=== PATIENT | female | born 1990 | race American Indian/Alaskan Native ===

== ENCOUNTER 2021-12-05 13:40 | Emergency (ER) | payer OTHER ==
[2021-12-05 14:25] VITALS: BP 112/79
[2021-12-05 16:19] LABS: Basophils % (Auto) 0.2 % (0.0-1.8); Eosinophils # (Auto) 0.1 K/mm3 (0.0-0.4); Eosinophils % (Auto) 1.5 % (0.0-4.3); Hematocrit 34.8 % (30.3-42.9); Hemoglobin 11.2 gm/dl (10.1-14.3); Lymphocytes # (Auto) 2.1 K/mm3 (1.2-5.4); Lymphocytes % (Auto) 30.9 % (13.4-35.0); Mean Corpuscular HGB Conc 32 % (30-34); Mean Corpuscular Volume 81 fl (79-97); Monocytes # (Auto) 0.7 K/mm3 (0.0-0.8); Monocytes % (Auto) 10.8 % (0.0-7.3); Platelet Count 318 K/mm3 (140-440); Red Blood Count 4.33 M/mm3 (3.65-5.03); Red Cell Distribution Width 15.9 % (13.2-15.2)
--- NOTE | 2021-12-05 16:24 | Vascular Lab Report ---
VL venous duplex LE RT INDICATION / CLINICAL INFORMATION: right leg pain and calf pain for a week. TECHNIQUE: Multiple grayscale sonographic images of left upper extremity were obtained utilizing a high-frequenc y linear array transducer with color Doppler, compression and other maneuvers when feasible. COMPARISON: None available. FINDINGS: No venous thrombosis is identified within the visualized extremity vasculature. ADDITIONAL FINDINGS: None. IMPRESSION: 1. No sonographic evidence for DVT in the visualized right lower extremity vasculature. Signer Name: Anup Hairston MD Signed: 12/05/2021 4:19 PM Workstation Name: [id number]
[2021-12-05 16:25] LABS: INR 0.96 (0.87-1.13)
[2021-12-05 16:40] LABS: BUN/Creatinine Ratio 21; Blood Urea Nitrogen 15 mg/dL (7-17); Calcium 9.2 mg/dL (8.4-10.2); Hemolysis Index 0
[2021-12-05] MEDS ORDERED: ACETAMINOPHEN 500 MG TAB PO ONE (19:34)
[2021-12-05] MEDS ORDERED: ONDANSETRON 4 MG ODT TAB PO ONE (19:34)
--- NOTE | 2021-12-05 19:56 | Emergency Department Report ---
ED Extremity Problem HPI - General Chief complaint: Extremity Injury, Lower Stated complaint: BLOOD CLOT IN RIGHT LEG Source: patient Mode of arrival: Ambulatory Limitations: No Limitations - History of Present Illness Initial comments: 31-year-old female presents to the ED complaining of low back pain radiating to her right leg x1 week. She has a history of DVT. Patient came to the ED to have an ultrasound done to rule out DVT. She states that she is currently breast-feeding a 4-month old and did not take any pain medication. She denies any dysuria, trauma, or fever. She has no no obvious edema noted to the right lower extremity,, no erythema noted. Patient is ambulatory without any difficulty. Denies any numbness tingling at present time. Patient is alert and oriented x3. No acute distress noted .No ill appearance noted. MD Complaint: extremity pain Onset/Timin -: week(s) Location: right, lower extremity History of Same: Yes Radiation: none Severity scale (0 -10): 5 Quality: aching Consistency: intermittent Improves with: nothing Worsens with: nothing Associated Symptoms: denies other symptoms - Related Data Previous Rx's Medication Instructions Recorded Last Taken Type Cyclobenzaprine [Flexeril] 10 mg PO TID PRN 15 Days #30 tab 12/05/21 Unknown Rx Ketorolac [Toradol] 10 mg PO Q6H PRN 15 Days #30 tab 12/05/21 Unknown Rx predniSONE [Deltasone] 50 mg PO QDAY 5 Days #5 tab 12/05/21 Unknown Rx Allergies Allergy/AdvReac Type Severity Reaction Status Date / Time No Known Allergies Allergy Unverified 12/05/21 14:21 ED Review of Systems ROS: Stated complaint: BLOOD CLOT IN RIGHT LEG Other details as noted in HPI Constitutional: denies: chills, fever Eyes: denies: eye pain, eye discharge, vision change ENT: denies: ear pain, throat pain Respiratory: denies: cough, shortness of breath, wheezing Cardiovascular: denies: chest pain, palpitations Endocrine: no symptoms reported Gastrointestinal: denies: abdominal pain, nausea, diarrhea Genitourinary: denies: urgency, dysuria, discharge Musculoskeletal: denies: back pain, joint swelling, arthralgia Skin: denies: rash, lesions Neurological: denies: headache, weakness, paresthesias Psychiatric: denies: anxiety, depression Hematological/Lymphatic: denies: easy bleeding, easy bruising ED Past Medical Hx - Past Medical History Previous Medical History?: Yes Hx Deep Vein Thrombosis: Yes (Right leg) Additional medical history: Vaginal delivery x 4 - Surgical History Past Surgical History?: Yes Additional Surgical History: Tubaligation - Medications Home Medications: Home Medications Medication Instructions Recorded Confirmed Last Taken Type Cyclobenzaprine [Flexeril] 10 mg PO TID PRN 15 Days #30 tab 12/05/21 Unknown Rx Ketorolac [Toradol] 10 mg PO Q6H PRN 15 Days #30 tab 12/05/21 Unknown Rx predniSONE [Deltasone] 50 mg PO QDAY 5 Days #5 tab 12/05/21 Unknown Rx ED Physical Exam - General Limitations: No Limitations General appearance: alert, in no apparent distress - Head Head exam: Present: atraumatic, normocephalic - Eye Eye exam: Present: normal appearance - ENT ENT exam: Present: mucous membranes moist - Neck Neck exam: Present: normal inspection - Respiratory Respiratory exam: Present: normal lung sounds bilaterally. Absent: respiratory distress - Cardiovascular Cardiovascular Exam: Present: regular rate, normal rhythm. Absent: systolic m urmur, diastolic murmur, rubs, gallop - GI/Abdominal GI/Abdominal exam: Present: soft, normal bowel sounds - Extremities Exam Extremities exam: Present: normal inspection - Back Exam Back exam: Present: normal inspection - Neurological Exam Neurological exam: Present: alert, oriented X3 - Psychiatric Psychiatric exam: Present: normal affect, normal mood - Skin Skin exam: Present: warm, dry, intact, normal color. Absent: rash ED Course Vital Signs 12/05/21 14:21 Temperature 98 F Pulse Rate 85 Respiratory 20 Rate Blood Pressure 112/79 [Right] O2 Sat by Pulse 98 Oximetry ED Medical Decision Making - Lab Data Result diagrams: 12/05/21 15:56 12/05/21 15:56 - Medical Decision Making 31-year-old female presents to the ED complaining of low back pain radiating to her right leg x1 week. She has a history of DVT. Patient came to the ED to have an ultrasound done to rule out DVT. She states that she is currently breast-feeding a 4-month old infant and did not take any pain medication. She denies any dysuria, trauma, or fever. She has no no obvious edema noted to the right lower extremity,, no erythema noted. Patient is ambulatory without any difficulty. Denies any numbness tingling at present time. Patient is alert and oriented x3. No acute distress noted .No ill appearance noted. Physical examination is unremarkable. Patient refused further diagnostic test of a urinalysis and eloped prior to registration and discharge. Critical care attestation.: If time is entered above; I have spent that time in minutes in the direct care of this critically ill patient, excluding procedure time. ED Disposition Clinical Impression: Back pain Qualifiers: Back pain location: low back pain Chronicity: acute Back pain laterality: right Sciatica presence: with sciatica Sciatica laterality: sciatica of right side Qualified Code(s): M54.41 - Lumbago with sciatica, right side Disposition: 07 LEFT AWOL/ELOPED Is pt being admited?: No Does the pt Need Aspirin: No Condition: Stable Instructions: Acute Back Pain, Adult Additional Instructions: Take medication as prescribed Return to ED for any worsening symptom Prescriptions: predniSONE [Deltasone] 50 mg PO QDAY 5 Days #5 tab Cyclobenzaprine [Flexeril] 10 mg PO TID PRN 15 Days #30 tab PRN Reason: Muscle Spasm Ketorolac [Toradol] 10 mg PO Q6H PRN 15 Days #30 tab PRN Reason: Pain Referrals: [facility] [Provider Group] - 3-5 Days Time of Disposition: 20:00
== END 2021-12-05 20:35 | disposition left against medical advice (07) ==
LOC: ED 13:40
DX: M54.50 Low back pain, unspecified (principal); Z86.718 Personal history of other venous thrombosis and embolism
CPT/HCPCS: 36415; 80048; 84703; 85025; 85610; 85730; 99284; J3490; Q0162